=== PATIENT | male | born 1970 | race Caucasian/White ===

== ENCOUNTER 2022-01-19 19:11 | Inpatient (IN) | payer OTHER ==
[2022-01-19 19:31] VITALS: BMI 23.1
[2022-01-19] MEDS ORDERED: BISMUTH SUBSALICYLATE 524 MG/30 ML PO PRN (23:23)
[2022-01-19] MEDS ORDERED: ACETAMINOPHEN 325 MG TABLET (FP) PO PRN ×2 (23:23)
[2022-01-19] MEDS ORDERED: hydrOXYzine PAMOATE 25 MG CAPSULE (FP) PO PRN (23:23)
[2022-01-19] MEDS ORDERED: LOPERAMIDE HCL 2 MG CAPSULE PO PRN (23:23)
[2022-01-19] MEDS ORDERED: MAGNESIUM HYDROX 2400MG/30ML ORAL SUSPENSION 30 ML CUP PO PRN (23:23)
[2022-01-19] MEDS ORDERED: DICYCLOMINE HCL 10 MG CAPSULE PO PRN (23:23)
[2022-01-19] MEDS ORDERED: MELATONIN 5 MG TABLETS PO PRN (23:23)
[2022-01-19] MEDS ORDERED: NICOTINE POLACRILEX 2 MG GUM BUC PRN (23:23)
[2022-01-19] MEDS ORDERED: ONDANSETRON *ODT* 4 MG TABLET SL PRN (23:23)
[2022-01-19] MEDS ORDERED: METHOCARBAMOL 500 MG TABLET PO PRN (23:23)
[2022-01-19] MEDS ORDERED: MAGNESIUM CITRATE 300 ML BOTTLE PO PRN (23:23)
[2022-01-19] MEDS ORDERED: MENTHOL/PHENOL 1 EACH UD MM PRN (23:23)
[2022-01-19] MEDS ORDERED: MAG HYDROX/AL HYDROX/SIMETH 30 ML UNIT-DOSE CUP PO PRN (23:23)
[2022-01-19] MEDS ORDERED: IBUPROFEN 400 MG TABLET (FP) PO PRN (23:23)
[2022-01-19] MEDS ORDERED: chlordiazePOXIDE HCL 25 MG CAPSULE PO PRN (23:26)
[2022-01-20] MEDS: chlordiazePOXIDE HCL 25 MG CAPSULE PO SCH ×5 (03:09→22:30)
[2022-01-20] MEDS ORDERED: methaDONE HCL 40 MG DISPERSABLE TABLET PO ONE (08:26)
[2022-01-20] MEDS ORDERED: methaDONE HCL 40 MG DISPERSABLE TABLET PO SCH (08:30)
[2022-01-20 10:03] LABS: HEMATOCRIT 35.6 % (35.4-49); HEMOGLOBIN 12.1 GM/dL (11.7-16.9); MEAN CELL VOLUME 79.4 fl (80-96); MEAN PLT VOLUME 8.7 fl (7.5-11.1); PLATELET COUNT 218 10^3/uL (134-434); RBC 4.49 M/mm3 (4.00-5.60); RDW 14.7 % (11.9-15.9); WHITE BLOOD COUNT 5.5 K/mm3 (4.0-10.0)
[2022-01-20 10:11] LABS: CALCIUM 8.1 mg/dL (8.5-10.1)
[2022-01-20 10:12] LABS: ALBUMIN 2.6 g/dl (3.4-5.0); BLOOD UREA NITROGEN 12.5 mg/dL (7-18)
[2022-01-20 10:13] LABS: CREATININE 0.8 mg/dL (0.55-1.3)
[2022-01-20 10:15] LABS: BILIRUBIN,TOTAL 0.2 mg/dL (0.2-1)
[2022-01-20] MEDS: PRENATAL VITAMINS W/ FOLIC ACID TABLET (FP) PO SCH (10:20)
[2022-01-20] MEDS: THIAMINE HCL 100 MG TABLET (FP) PO SCH (22:29)
[2022-01-21] MEDS: chlordiazePOXIDE HCL 25 MG CAPSULE PO SCH ×4 (06:41→22:36)
[2022-01-21] MEDS: methaDONE HCL 40 MG DISPERSABLE TABLET PO SCH (06:43)
[2022-01-21] MEDS: PRENATAL VITAMINS W/ FOLIC ACID TABLET (FP) PO SCH (10:09)
[2022-01-21] MEDS: CALCIUM (OYSTER SHELL) 500 MG TABLET (FP) PO SCH ×2 (10:09→22:36)
[2022-01-21 10:13] LABS: SARS-CoV-2 NAA Not Detected (Not Detected)
[2022-01-21] MEDS: THIAMINE HCL 100 MG TABLET (FP) PO SCH (22:36)
[2022-01-22] MEDS ORDERED: chlordiazePOXIDE HCL 10 MG CAPSULE PO PRN
[2022-01-22] MEDS: chlordiazePOXIDE HCL 10 MG CAPSULE PO SCH ×4 (06:15→22:49)
[2022-01-22] MEDS: methaDONE HCL 40 MG DISPERSABLE TABLET PO SCH (06:15)
[2022-01-22] MEDS: PRENATAL VITAMINS W/ FOLIC ACID TABLET (FP) PO SCH (10:21)
[2022-01-22] MEDS: CALCIUM (OYSTER SHELL) 500 MG TABLET (FP) PO SCH ×2 (10:21→22:49)
[2022-01-22] MEDS: THIAMINE HCL 100 MG TABLET (FP) PO SCH (22:49)
[2022-01-23 00:07] LABS: SARS-CoV-2 NAA Not Detected (Not Detected)
[2022-01-23] MEDS: methaDONE HCL 40 MG DISPERSABLE TABLET PO SCH (05:45)
[2022-01-23] MEDS: chlordiazePOXIDE HCL 10 MG CAPSULE PO SCH ×2 (05:45→17:30)
[2022-01-23] MEDS: PRENATAL VITAMINS W/ FOLIC ACID TABLET (FP) PO SCH (10:36)
[2022-01-23] MEDS: CALCIUM (OYSTER SHELL) 500 MG TABLET (FP) PO SCH ×2 (10:36→22:17)
[2022-01-23] MEDS: THIAMINE HCL 100 MG TABLET (FP) PO SCH (22:17)
[2022-01-24] MEDS ORDERED: chlordiazePOXIDE HCL 10 MG CAPSULE PO ONE (05:00)
[2022-01-24] MEDS: methaDONE HCL 40 MG DISPERSABLE TABLET PO SCH (06:08)
[2022-01-24 10:07] VITALS: BP 131/75; PULSE 90; TEMP 97.1
[2022-01-24] MEDS: CALCIUM (OYSTER SHELL) 500 MG TABLET (FP) PO SCH (10:31)
[2022-01-24] MEDS: PRENATAL VITAMINS W/ FOLIC ACID TABLET (FP) PO SCH (10:31)
== END 2022-01-24 10:47 | disposition other institution (70) | DRG 773 ==
LOC: YASAS 19:11 → Y3N 23:50
PROVIDERS: ADMIT Allergy & Immunology; ATTEND Allergy & Immunology
PROC: HZ2ZZZZ Detoxification Services for Substance Abuse Treatment (ICD-10-PCS; principal; 2022-01-19)
DX: F13.230 Sedative, hypnotic or anxiolytic dependence with withdrawal, uncomplicated (principal); F11.20 Opioid dependence, uncomplicated; F14.20 Cocaine dependence, uncomplicated; F17.210 Nicotine dependence, cigarettes, uncomplicated; E83.51 Hypocalcemia; E46 Unspecified protein-calorie malnutrition; Z68.23 Body mass index [BMI] 23.0-23.9, adult
CPT/HCPCS: 36415; 80053; 85027; 86780; 87811; 93005; 93010; C9803-CS; U0003; U0005